=== PATIENT | male | born 1960 | race African-American/Black ===

== ENCOUNTER 2017-09-04 21:40 | Emergency (ER) | payer OTHER ==
[~2017-09-04] VITALS: Ht 167.6 cm; Wt 103.9 kg
[~2017-09-04 21:40] MED LIST: ANTIVERT25 MG PO; ASPIR 8181 M1; ATORVASTATIN CA40 MG PO; CEPACOL SORE T1 EAC9 MM; CIPRO500 MG PO; DOXYCYCLINE HY100 MG PO; ENDOCET 5-3251 EACH PO; FLAGYL500 MG PO; GABAPENTIN100 MG PO; GUAIFENESIN600 M1 PO; IRON325 MG PO; LORATADINE10 M2 PO; LYRICA75 MG PO; METOPROLOL SUCC25 MG PO; MOTRIN IB200 MG PO; MULTI-DAY VITA1 EACH PO; MULTIVITAMIN1 EAC2 PO; NAPROSYN500 MG PO; NEURONTIN600 MG PO; NORCO 5/3251 TABLET PO; NORTRIPTYLINE H50 MG PO; OMEPRAZOLE40 M1 PO; PERCOCET 10/1 TABLET PO; PLAVIX75 MG PO; SIMVASTATIN20 MG PO; TRAMADOL HCL50 MG PO; TUSSIONEX PENN473 ML PO; XARELTO10 MG PO; ZITHROMAX Z-PA250 MG PO; ZOFRAN4 MG PO
[2017-09-04] MEDS ORDERED: ROBAXIN750 MG PO (23:45)
[2017-09-04] MEDS ORDERED: LORTAB 5-325 M1 EACH PO (23:45)
[2017-09-04] MEDS ORDERED: NAPROSYN500 MG PO (23:45)
[2017-09-04 23:56] VITALS: BP 131/77
== END 2017-09-05 00:07 | disposition home or self-care (01) ==
LOC: EME 21:40
DX: M75.42 Impingement syndrome of left shoulder (principal); I10 Essential (primary) hypertension; E78.5 Hyperlipidemia, unspecified; Z95.5 Presence of coronary angioplasty implant and graft
CPT/HCPCS: 73030; 93005; 99281; 99283

== ENCOUNTER 2017-10-09 00:35 | Emergency (ER) | payer OTHER ==
[~2017-10-09] VITALS: Ht 167.6 cm; Wt 100.0 kg
[~2017-10-09 00:35] MED LIST changes: +LORTAB 5-325 M1 EACH PO; +ROBAXIN750 MG PO
[2017-10-09] MEDS ORDERED: PERCOCET 10/1 TABLET PO (01:37)
[2017-10-09 01:44] VITALS: BP 172/97
== END 2017-10-09 01:45 | disposition home or self-care (01) ==
LOC: EXP 00:35 → EME 00:35 → EXP 01:45
DX: M25.511 Pain in right shoulder (principal)
CPT/HCPCS: 99281; 99284

== ENCOUNTER 2017-11-25 20:01 | Emergency (ER) | payer OTHER ==
[~2017-11-25] VITALS: Ht 167.6 cm; Wt 98.6 kg
[2017-11-25] MEDS ORDERED: TESSALON PERLE100 MG PO (21:53)
[2017-11-25 22:38] VITALS: BP 137/89
== END 2017-11-25 22:35 | disposition home or self-care (01) ==
LOC: EME 20:01
DX: R05 Cough (principal); T46.4X5A Adverse effect of angiotensin-converting-enzyme inhibitors, initial encounter; J45.909 Unspecified asthma, uncomplicated; I10 Essential (primary) hypertension; E78.00 Pure hypercholesterolemia, unspecified; E78.5 Hyperlipidemia, unspecified
CPT/HCPCS: 71020; 99281; 99284

== ENCOUNTER 2018-06-10 11:17 | Emergency (ER) | payer OTHER ==
[~2018-06-10] VITALS: Ht 167.6 cm; Wt 98.9 kg
[~2018-06-10 11:17] MED LIST changes: +TESSALON PERLE100 MG PO
[2018-06-10] MEDS ORDERED: FLEXERIL10 MG PO (14:11)
[2018-06-10] MEDS ORDERED: NAPROSYN500 MG PO (14:11)
[2018-06-10] MEDS ORDERED: LIDODERM 5% P1 PATCH TD (14:11)
[2018-06-10 15:00] VITALS: BP 139/79
== END 2018-06-10 15:02 | disposition home or self-care (01) ==
LOC: EME 11:17
DX: S39.012A Strain of muscle, fascia and tendon of lower back, initial encounter (principal); V49.40XA Driver injured in collision with unspecified motor vehicles in traffic accident, initial encounter; Y92.410 Unspecified street and highway as the place of occurrence of the external cause; E78.5 Hyperlipidemia, unspecified; K21.9 Gastro-esophageal reflux disease without esophagitis; I25.10 Atherosclerotic heart disease of native coronary artery without angina pectoris; Z95.5 Presence of coronary angioplasty implant and graft; Z87.442 Personal history of urinary calculi; Z87.891 Personal history of nicotine dependence; Z91.041 Radiographic dye allergy status
CPT/HCPCS: 72100; 99281; 99283

== ENCOUNTER 2018-06-23 11:59 | Emergency (ER) | payer OTHER ==
[~2018-06-23] VITALS: Ht 167.6 cm; Wt 98.1 kg
[~2018-06-23 11:59] MED LIST changes: +FLEXERIL10 MG PO; +LIDODERM 5% P1 PATCH TD
[2018-06-23] MEDS ORDERED: MOTRIN800 MG PO (15:06)
[2018-06-23] MEDS ORDERED: PERCOCET 5/31 TABLET PO (15:06)
[2018-06-23 15:45] VITALS: BP 154/82
== END 2018-06-23 16:01 | disposition home or self-care (01) ==
LOC: EME 11:59
DX: S83.91XA Sprain of unspecified site of right knee, initial encounter (principal); M25.461 Effusion, right knee; Z96.651 Presence of right artificial knee joint; Y04.0XXA Assault by unarmed brawl or fight, initial encounter; X50.9XXA Other and unspecified overexertion or strenuous movements or postures, initial encounter; I25.10 Atherosclerotic heart disease of native coronary artery without angina pectoris; Z95.5 Presence of coronary angioplasty implant and graft; Z87.891 Personal history of nicotine dependence; Z91.041 Radiographic dye allergy status
CPT/HCPCS: 73564; 99281; 99284

== ENCOUNTER → 2018-07-04 | Outpatient (CLI) | payer OTHER ==
[~2018-07-04] MED LIST changes: +MOTRIN800 MG PO; +PERCOCET 5/31 TABLET PO
== END | disposition home or self-care (01) ==
LOC: RAD 16:30
DX: S82.142A Displaced bicondylar fracture of left tibia, initial encounter for closed fracture (principal); S82.492A Other fracture of shaft of left fibula, initial encounter for closed fracture; X58.XXXA Exposure to other specified factors, initial encounter; M25.561 Pain in right knee; Z96.651 Presence of right artificial knee joint
CPT/HCPCS: 73700